=== PATIENT | female | born 1990 ===

== ENCOUNTER 2025-02-15 19:11 | Emergency (ER) | payer SELFPAY ==
[~2025-02-15] VITALS: Ht 167.6 cm; Wt 95.2 kg
== END 2025-02-15 20:13 | disposition home or self-care (01) ==
LOC: ER 19:11
DX: H60.92 Unspecified otitis externa, left ear (principal); Z59.89 Other problems related to housing and economic circumstances
CPT/HCPCS: 99282; A9270